=== PATIENT | male | born 1985 | race Caucasian/White ===

== ENCOUNTER 2019-06-02 06:25 | Emergency (ER) | payer MEDICAID, OTHER ==
[~2019-06-02] VITALS: Ht 172.7 cm; Wt 71.0 kg
[2019-06-02 08:14] VITALS: BP 100/68
== END 2019-06-02 08:11 | disposition home or self-care (01) ==
LOC: ER 06:25
DX: B36.0 Pityriasis versicolor (principal); L20.9 Atopic dermatitis, unspecified; E78.00 Pure hypercholesterolemia, unspecified; F12.10 Cannabis abuse, uncomplicated
CPT/HCPCS: 99281